=== PATIENT | female | born 1980 | race Caucasian/White ===

== ENCOUNTER → 2017-08-21 10:07 | Outpatient (CLI) | payer OTHER ==
[2015-04-11 23:37] VITALS: BMI 17.6
== END | disposition home or self-care (01) ==
LOC: D.RAD 10:00
DX: Z02.71 Encounter for disability determination (principal)

== ENCOUNTER 2018-11-28 23:49 | Emergency (ER) | payer MEDICAID ==
[~2018-11-28] VITALS: Ht 154.9 cm; Wt 46.8 kg
[2018-11-28 23:55] VITALS: Ht 154.9 cm; Wt 46.8 kg
[2018-11-29] MEDS ORDERED: VISTARIL25 MG PO (00:21)
[2018-11-29] MEDS ORDERED: SULFAMETHOXAZOL1 TA3 PO (00:21)
[2018-11-29] MEDS ORDERED: KEFLEX500 MG PO (00:21)
[2018-11-29 00:31] VITALS: BP 122/68
== END 2018-11-29 00:32 | disposition home or self-care (01) ==
LOC: D.ER 23:49
DX: S40.262A Insect bite (nonvenomous) of left shoulder, initial encounter (principal); W57.XXXA Bitten or stung by nonvenomous insect and other nonvenomous arthropods, initial encounter; Y93.89 Activity, other specified; Y92.019 Unspecified place in single-family (private) house as the place of occurrence of the external cause

== ENCOUNTER → 2019-05-13 09:47 | Outpatient (CLI) | payer MEDICAID ==
[2018-11-28 23:55] VITALS: BMI 19.5
[~2019-05-13 09:47] MED LIST: KEFLEX500 MG PO; SULFAMETHOXAZOL1 TA3 PO; VISTARIL25 MG PO
== END | disposition home or self-care (01) ==
LOC: D.CT 09:47
PROVIDERS: ATTEND Family Medicine
DX: G44.309 Post-traumatic headache, unspecified, not intractable (principal)

== ENCOUNTER → 2019-05-16 09:25 | Outpatient (CLI) | payer MEDICAID ==
[2018-11-28 23:55] VITALS: BMI 19.5
== END | disposition home or self-care (01) ==
LOC: D.CT 09:25
PROVIDERS: ATTEND Family Medicine
DX: G44.309 Post-traumatic headache, unspecified, not intractable (principal)